=== PATIENT | male | born 1955 | race Caucasian/White ===

== ENCOUNTER → 2016-09-12 | Outpatient (CLI) | payer OTHER | END | disposition home or self-care (01) | LOC: GMAM 12:04 | PROVIDERS: ATTEND Family Medicine | DX: R94.6 Abnormal results of thyroid function studies (principal) ==

== ENCOUNTER → 2017-04-07 | Outpatient (CLI) | payer OTHER | END | disposition home or self-care (01) | LOC: GMAM 11:07 | PROVIDERS: ATTEND Family Medicine | DX: R94.6 Abnormal results of thyroid function studies (principal); Z12.5 Encounter for screening for malignant neoplasm of prostate ==

== ENCOUNTER → 2017-07-10 | Outpatient (CLI) | payer OTHER | LOC: GMAM 11:47 | PROVIDERS: ATTEND Family Medicine | DX: M70.21 Olecranon bursitis, right elbow (principal) ==

== ENCOUNTER → 2017-09-25 | Outpatient (CLI) | payer OTHER | LOC: RESP 15:14 | PROVIDERS: ATTEND Orthopaedic Surgery | DX: Z01.818 Encounter for other preprocedural examination (principal) ==

== ENCOUNTER → 2018-04-20 | Outpatient (CLI) | payer OTHER | LOC: GMAM 13:23 | PROVIDERS: ATTEND Family Medicine | DX: Z12.5 Encounter for screening for malignant neoplasm of prostate (principal) ==

== ENCOUNTER → 2019-07-12 | Outpatient (CLI) | payer OTHER | LOC: GMAM 11:19 | PROVIDERS: ATTEND Family Medicine | DX: E03.9 Hypothyroidism, unspecified (principal); E29.1 Testicular hypofunction; Z12.5 Encounter for screening for malignant neoplasm of prostate ==

== ENCOUNTER → 2019-07-23 | Outpatient (CLI) | payer OTHER | LOC: GMAM 10:31 | PROVIDERS: ATTEND Family Medicine | DX: R94.7 Abnormal results of other endocrine function studies (principal) ==

== ENCOUNTER → 2019-12-23 | Outpatient (CLI) | payer OTHER | LOC: GMAM 15:27 | PROVIDERS: ATTEND Family Medicine | DX: R07.9 Chest pain, unspecified (principal); K21.0 Gastro-esophageal reflux disease with esophagitis ==

== ENCOUNTER → 2020-01-10 | Outpatient (CLI) | payer OTHER ==
--- NOTE | 2020-01-06 17:14 | MRI ---
EXAM DESCRIPTION: Brain w/o Contrast: MRI. CLINICAL HISTORY: syncope and collapse COMPARISON: MRI scan of the brain without and with gadolinium IV contrast December 2013. TECHNIQUE: Multiplanar, high-field MRI unit, multiple diffusion sequences, multiple conventional sequences without contrast. FINDINGS: Multiple bilateral foci of hyperintense FLAIR and T2-weighted signal in the abutting the bilateral frontal and occipital horns of the lateral ventricles. More predominantly involving the bilateral subcortical white matter in the 3 major lobes. Relative sparing of the temporal lobe.. No hemorrhage, no cerebral edema, no midline shift. Stable since the prior study.. Normal signal in the bilateral basal ganglia. Normal signal in the brainstem and cerebellar hemispheres.. Concordance of the diffusion and non-diffusion sequences with no diffusion restriction. Cortical sulci, ventricles, and other CSF spaces, and the subdural spaces are normally configured for patients age. No significant change since the prior study. No effacement or displacement. No midline shift. No extra-axial hemorrhage. Normal flow signal void in the major vessels of the [place], and the venous sinuses. IACs are symmetric bilaterally. Focal fluid in the mid posterior left mastoid air cells, but normal signal in the right mastoid air cells. No mass effect in the bilateral cerebellopontine angles. Pituitary gland occupies most of the sella. Base of the cerebellar tonsils is at the level of the foramen magnum. Polyp or cyst along with other inflammatory changes in the base of the right antrum. Frontal sinuses are hypoplastic. Posterior left deviation of the septum.. The bony calvarium is intact. IMPRESSION: 1. Bilateral white matter changes in the subcortical regions more than the periventricular regions is most likely related to aging and also can be indicating cerebral microvascular disease. No intra-axial or extra-axial hemorrhage. No extra-axial fluid. No midline shift or cerebral edema. Stable since the prior study. 2. Normal noncontrast MRI diffusion study with no evidence of significant ischemia, subacute or acute infarction. 3. Chronic paranasal sinus disease. Electronically signed by: Kosta Shah MD 01/06/2020 5:12 PM CDT
== END ==
LOC: MRI 01-05 13:38
PROVIDERS: ATTEND Family Medicine
DX: R90.82 White matter disease, unspecified (principal); J32.9 Chronic sinusitis, unspecified

== ENCOUNTER → 2020-01-12 | Outpatient (CLI) | payer OTHER ==
--- NOTE | 2020-01-13 08:46 | US ---
EXAM DESCRIPTION: Gall Bladder: ULTRASOUND. CLINICAL HISTORY: GASTRO REFLUX DISEASE COMPARISON: None. TECHNIQUE: Transabdominal scanning: Jain-scale and Doppler modes.. Technically difficult study due to patient body habitus. FINDINGS: Gallbladder: normal size, shape, echogenicity; no intraluminal stones or sludge. No fluid around the gallbladder. No wall thickening. 2.2 mm. Non-tender with transducer pressure. Common bile duct: caliber 4.5 mm within normal limits. Liver: Cystic structure right lobe measuring 10 x 9 x 9 mm. Second cyst measures 1.3 x 1.3 x 1.0 cm. Normal echogenicity; contour liver capsule smooth where seen. No fluid around the liver. Intrahepatic biliary ducts normal caliber. Doppler hepatopedal flow portal vein.. 8.2 mm caliber at joon hepatis. Long axis right lobe 13.5 cm. Pancreas: normal size Normal echogenicity. Duct not seen. Aorta: 1.9 cm normal caliber. Right kidney: long axis is 9.6 cm; volume 168 mL.. 3.9 mm echogenic stone with acoustic shadowing mid cortex. 4.1 mm stone in the upper cortex. 3.5 mm stone in the lower cortex. No hydronephrosis or perinephric fluid. Proximal ureter not seen. IMPRESSION: 1. Study somewhat limited by patient body habitus. 2 cysts in the right liver, otherwise negative. Pancreas unremarkable. No ascites. 2. Gallbladder common bile duct are unremarkable. 3. Multiple stones in the right kidney with no evidence of obstruction or perirenal fluid. Normal caliber of the proximal abdominal aorta. Electronically signed by: Kosta Shah MD 01/13/2020 8:44 AM CDT
== END ==
LOC: US 08:06
PROVIDERS: ATTEND Family Medicine
DX: K21.0 Gastro-esophageal reflux disease with esophagitis (principal); K76.89 Other specified diseases of liver; N20.0 Calculus of kidney; R55 Syncope and collapse

== ENCOUNTER → 2020-01-14 | Outpatient (CLI) | payer OTHER ==
--- NOTE | 2020-01-16 16:01 | US ---
EXAM DESCRIPTION: Carotid Duplex: ULTRASOUND. CLINICAL HISTORY: 64 years Male SYNCOPE COMPARISON: None. TECHNIQUE: Transcutaneous scanning utilizing daly-scale and Doppler modes to evaluate the bilateral carotid systems and vertebral arteries. Percentage of diameter of stenosis or no stenosis recorded will be based upon NASCET criteria. FINDINGS: Peak systolic/end diastolic velocities (CM-Sec) CCA Right 69/6 Left knee/17. ICA Right proximal 54/16, mid 60/27. Left proximal 58/18, Distal 59/29. Vertebral Right 42/12 Left 31/12. ECA (PS Only) Right 64 left 68. ICA/CCA peak systolic velocity ratio: Right 0.9 Left 1.0 ICA/CCA end diastolic velocity ratio: Right 4.4 Left 1.5 Vertebral arteries: antegrade flow. Comments: Bilateral atherosclerotic calcifications in the common carotid bifurcations and proximal ICAs. Areas stenoses and diameter stenoses in the left common carotid bulb and proximal left ICA were less than 25%. Areas of stenoses and diameter stenoses in the right common carotid bulb and proximal right ICA were less than 30%. IMPRESSION: 1. Doppler evaluation of the bilateral carotid systems and vertebral arteries shows no hemodynamically significant stenoses (less than 70%). 2. Minimal amount of plaque in the carotid arteries bilaterally. Bilateral vertebral arteries showed antegrade-cephalad flow. Electronically signed by: Kosta Shah MD 01/16/2020 3:59 PM CDT
== END ==
LOC: US 09:28
PROVIDERS: ATTEND Family Medicine
DX: I65.23 Occlusion and stenosis of bilateral carotid arteries (principal); R55 Syncope and collapse; K21.0 Gastro-esophageal reflux disease with esophagitis